=== PATIENT | female | born 2000 | race Caucasian/White ===

== ENCOUNTER 2024-02-29 01:44 | Emergency (ER) | payer BC ==
[2024-02-29 01:56] LABS: APPEARANCE,URINE CLEAR (Clear); BILIRUBIN,URINE NEGATIVE (Negative); COLOR,URINE YELLOW (Yellow); GLUCOSE,URINE NEGATIVE (Negative); KETONES,URINE NEGATIVE (Negative); LEUKOCYTE ESTERASE,URINE NEGATIVE (Negative); NITRITE,URINE NEGATIVE (Negative); OCCULT BLOOD,URINE NEGATIVE (Negative); PROTEIN,URINE NEGATIVE (Negative); UROBILINOGEN,URINE 0.2 (0.2-1.0)
== END 2024-02-29 02:20 | disposition home or self-care (01) ==
LOC: JD.ED 01:44
DX: O99.891 Other specified diseases and conditions complicating pregnancy (principal); R30.0 Dysuria; Z3A.12 12 weeks gestation of pregnancy; Z88.2 Allergy status to sulfonamides
CPT/HCPCS: 81003; 99283

== ENCOUNTER 2024-08-24 07:08 | Emergency (ER) | payer BC ==
[2024-08-24] MEDS: Metoclopramide 10 MG/2 ML SDV IVPUSH ONE (08:02)
[2024-08-24] MEDS: Sodium Chloride 0.9% 10 ML Syringe FLUSH PRN (08:03)
[2024-08-24] MEDS: Sodium Chloride 0.9% 1,000 ML IV STA (08:04)
[2024-08-24 08:16] LABS: BASOPHILS PERCENT AUTO 0.1 % (0.0-1.0); HEMATOCRIT 42.4 % (37.0-47.0); HEMOGLOBIN 14.3 gm/dl (12.0-16.0); IMMATURE GRAN ABSOLUTE AUTO 0.04 K/mm3 (0.00-0.05); IMMATURE GRAN PERCENT AUTO 0.3 % (0.0-0.4); LYMPHOCYTES ABSOLUTE AUTO 0.4 K/mm3 (1.0-4.8); MEAN CORPUSCULAR HEMOGLOBIN 31.4 pg (28.0-32.0); MEAN CORPUSCULAR HGB CONC 33.7 g/dl (32.0-36.0); MEAN CORPUSCULAR VOLUME 93.2 fl (83.0-99.0); MEAN PLATELET VOLUME 11.7 fl (9.4-12.3); MONOCYTES ABSOLUTE AUTO 0.4 K/mm3 (0.0-0.8); MONOCYTES PERCENT AUTO 3.4 % (0.0-8.0); NEUTROPHILS ABSOLUTE AUTO 11.9 K/mm3 (1.8-7.7); NEUTROPHILS PERCENT AUTO 93.2 % (41.0-71.0); PLATELET COUNT,PLT 217 K/mm3 (150-400); RED BLOOD CELL COUNT 4.55 M/mm3 (4.10-5.30); WHITE BLOOD CELL COUNT,WBC 12.73 K/mm3 (3.9-11.3)
[2024-08-24 08:42] LABS: A/G RATIO 0.8 (1-2); ALANINE AMINOTRANSFERASE,ALT 35 U/L (14-59); ALKALINE PHOSPHATASE 102 U/L (46-116); ASPARTATE AMNIOTRANSFERASE,AST 36 U/L (15-37); BILIRUBIN TOTAL 0.7 mg/dL (0.2-1.0); BLOOD UREA NITROGEN,BUN 15 mg/dL (7-18); BUN/CREATININE RATIO 21.4 (14-18); CALCIUM 8.4 mg/dL (8.5-10.1); CARBON DIOXIDE,CO2 20 mEq/L (21-32); CHLORIDE,CL 102 mEq/L (98-107); CREATININE 0.7 mg/dL (0.55-1.02); ESTIMATED GFR 123 mL/min (>60); GLUCOSE RANDOM 172 mg/dL (70-99); LIPASE 35 U/L (16-77); SODIUM,NA 140 mEq/L (136-145)
[2024-08-24 09:13] LABS: SLIDE REVIEW ABNORMAL SMEAR
[2024-08-24 09:46] LABS: APPEARANCE,URINE CLEAR (Clear); BILIRUBIN,URINE NEGATIVE (Negative); COLOR,URINE YELLOW (Yellow); GLUCOSE,URINE TRACE (Negative); KETONES,URINE 4+ (Negative); LEUKOCYTE ESTERASE,URINE NEGATIVE (Negative); NITRITE,URINE NEGATIVE (Negative); OCCULT BLOOD,URINE NEGATIVE (Negative); PROTEIN,URINE 2+ (Negative); UROBILINOGEN,URINE 0.2 (0.2-1.0)
[2024-08-24] MEDS: Sodium Chloride 0.9% 1,000 ML IV ONE (09:47)
[2024-08-24] MEDS: Famotidine 20 MG/2 ML SDV IVPUSH ONE (10:13)
[2024-08-24] MEDS: Ondansetron 4 MG/2 ML SDV IVPUSH ONE (10:13)
[2024-08-24 10:22] LABS: BACTERIA,URINE FEW /hpf (FEW); EPITHELIAL CELLS,URINE 0-5 /hpf (0-5); MUCUS,URINE NOT SEEN /hpf (FEW); RBC,URINE 0-5 /hpf (0-5); WBC,URINE 0-5 /hpf (0-5)
== END 2024-08-24 10:30 | disposition home or self-care (01) ==
LOC: JD.ED 07:08
DX: O21.2 Late vomiting of pregnancy (principal); Z88.2 Allergy status to sulfonamides; Z91.040 Latex allergy status; Z79.4 Long term (current) use of insulin; Z79.82 Long term (current) use of aspirin; Z79.899 Other long term (current) drug therapy; Z3A.39 39 weeks gestation of pregnancy
CPT/HCPCS: 36415; 80053; 81001; 82947; 83690; 85025; 96361; 96374; 96375; 99284; J2405; J2765; J7030; 99283